=== PATIENT | male | born 1940 | race Caucasian/White ===

== ENCOUNTER 2021-01-29 13:44 | Emergency (ER) | payer MEDICARE ==
--- NOTE | 2021-01-29 14:19 | XR ---
EXAMINATION TYPE: XR KUB DATE OF EXAM: 01/29/2021 COMPARISON: NONE HISTORY: Constipation TECHNIQUE: One view abdominal series FINDINGS: The osseous structures are intact. The bowel gas pattern is nonspecific. Lung bases are clear. Hyper trophic and degenerative change spine. Arthropathy of the hips. Calcification right pelvis likely vas cular. IMPRESSION: 1. Nonspecific abdomen
[2021-01-29] MEDS ORDERED: HYDROmorphone 0.5 MG/0.5 ML SYRINGE IVP STA (16:05)
[2021-01-29] MEDS ORDERED: ONDANSETRON 4 MG/2 ML VIAL IVP STA (16:05)
[2021-01-29] MEDS ORDERED: SODIUM CHLORIDE 0.9% 500 ML 500 ML IV STA (16:05)
[2021-01-29] MEDS ORDERED: ACETAMINOPHEN TAB 500 MG TAB PO STA (16:09)
--- NOTE | 2021-01-29 16:10 | ED ---
General Adult HPI - General Chief complaint: Abdominal Pain Stated complaint: Constipation Time Seen by Provider: 01/29/21 15:43 Source: patient, RN notes reviewed Mode of arrival: ambulatory Limitations: no limitations - History of Present Illness Initial comments: 80-year-old male with a past medical history of remote cholecystectomy, appendectomy presents to the emergency room for chief complaint of abdominal pain. Patient states he has had mid abdominal pain for about 4 days now. States he has not had a full bowel movement in the past 4 days either. Patient reports that he believes he is constipated. Patient currently rating his pain at an 8 out of 10. Reports that he is very nauseous. Patient did get a pedraza virus immunization yesterday. He reports that he had a pedraza virus about 5 weeks ago.Patient has no other complaints at this time including shortness of breath, chest pain, headache, or visual changes. - Related Data Home Medications Medication Instructions Recorded Confirmed Aspirin EC [Ecotrin Low Dose] 81 mg PO DAILY 01/29/21 01/29/21 Calcium Carbonate [Calcium] 600 mg PO BID 01/29/21 01/29/21 Garlic 1 tab PO DAILY 01/29/21 01/29/21 Krill/Om-3/Dha/Epa/Phospho/Ast 1 cap PO DAILY 01/29/21 01/29/21 [[place]-3 Krill Oil 300 mg Sfgl] Pravastatin Sodium [Pravachol] 20 mg PO DAILY 01/29/21 01/29/21 Ubidecarenone [Co Q-10] 200 mg PO DAILY 01/29/21 01/29/21 amLODIPine [Norvasc] 10 mg PO DAILY 01/29/21 01/29/21 atenoloL [Tenormin] 50 mg PO BID 01/29/21 01/29/21 cloNIDine HCL [Catapres] 0.1 mg PO HS 01/29/21 01/29/21 lisinopriL [Zestril] 20 mg PO DAILY 01/29/21 01/29/21 metFORMIN HCL [Glucophage] 500 mg PO BID 01/29/21 01/29/21 Allergies Allergy/AdvReac Type Severity Reaction Status Date / Time No Known Allergies Allergy Verified 01/29/21 16:29 Review of Systems ROS Statement: Those systems with pertinent positive or pertinent negative responses have been documented in the HPI. ROS Other: All systems not noted in ROS Statement are negative. Past Medical History Past Medical History: No Reported History History of Any Multi-Drug Resistant Organisms: None Reported Past Surgical History: Appendectomy, Cholecystectomy Past Psychological History: No Psychological Hx Reported Smoking Status: Never smoker Past Alcohol Use History: None Reported Past Drug Use History: None Reported General Exam Limitations: no limitations General appearance: alert, in no apparent distress Head exam: Present: atraumatic, normocephalic, normal inspection Eye exam: Present: normal appearance, PERRL, EOMI. Absent: scleral icterus, conjunctival injection, periorbital swelling ENT exam: Present: normal exam, mucous membranes moist Neck exam: Present: normal inspection. Absent: tenderness, meningismus, lymp hadenopathy Respiratory exam: Present: normal lung sounds bilaterally. Absent: respiratory distress, wheezes, rales, rhonchi, stridor Cardiovascular Exam: Present: regular rate, normal rhythm, normal heart sounds. Absent: systolic murmur, diastolic murmur, rubs, gallop, clicks GI/Abdominal exam: Present: soft, tenderness (generalized abdominal tenderness), normal bowel sounds. Absent: distended, guarding, rebound, rigid Neurological exam: Present: alert Course Vital Signs 01/29/21 01/29/21 13:47 16:15 Temperature 99.8 F H 100.3 F H Pulse Rate 72 69 Respiratory 16 20 Rate Blood Pressure 168/83 141/73 O2 Sat by Pulse 97 96 Oximetry Medical Decision Making - Medical Decision Making Vitals are stable. Patient has minimal generalized abdominal tenderness. No guarding or rebound. CBC is unremarkable. CMP unremarkable. Amylase and lipase normal. Urinalysis negative for infection. Coronavirus was detected however patient has a +5 weeks ago. This could be residual positive. He does have a low-grade temperature of 100.3 however also had coving vaccine yesterday which could be related. He will need to monitor symptoms over the next few days. As far as his abdominal pain a CT was obtained which showed a nodular infiltrate in the right posterior lung base of densities measuring up to 1.7 cm. Follow-up recommended which I did discuss with patient. No acute abnormality otherwise. No obvious constipation. I did recommend MiraLAX as patient has not had a normal bowel movement in 4 days. Patient reevaluated and symptoms are much improved. States he "feels really good." Patient states he is hungry and wants to go eat food. At this time patient will be discharged home. He will return here if he has any worsening symptoms that were discussed with him. - Lab Data Result diagrams: 01/29/21 16:05 01/29/21 16:05 Lab Results 01/29/21 01/29/21 01/29/21 Range/Units 16:05 16:05 16:05 WBC 5.6 (3.8-10.6) k/uL RBC 4.53 (4.30-5.90) m/uL Hgb 13.8 (13.0-17.5) gm/dL Hct 39.9 (39.0-53.0) % MCV 88.1 (80.0-100.0) fL MCH 30.6 (25.0-35.0) pg MCHC 34.7 (31.0-37.0) g/dL RDW 14.5 (11.5-15.5) % Plt Count 148 L (150-450) k/uL MPV 7.3 Neutrophils % 78 % Lymphocytes % 11 % Monocytes % 7 % Eosinophils % 2 % Basophils % 1 % Neutrophils # 4.4 (1.3-7.7) k/uL Lymphocytes # 0.6 L (1.0-4.8) k/uL Monocytes # 0.4 (0-1.0) k/uL Eosinophils # 0.1 (0-0.7) k/uL Basophils # 0.0 (0-0.2) k/uL Sodium 134 L (137-145) mmol/L Potassium 4.5 (3.5-5.1) mmol/L Chloride 101 (98-107) mmol/L Carbon Dioxide 24 (22-30) mmol/L Anion Gap 9 mmol/L BUN 12 (9-20) mg/dL Creatinine 0.97 (0.66-1.25) mg/dL Est GFR (CKD-EPI)AfAm 85 (>60 ml/min/1.73 sqM) Est GFR (CKD-EPI)NonAf 74 (>60 ml/min/1.73 sqM) Glucose 121 H (74-99) mg/dL Plasma Lactic Acid [place] (0.7-2.0) mmol/L Calcium 9.0 (8.4-10.2) mg/dL Total Bilirubin 1.2 (0.2-1.3) mg/dL AST 41 (17-59) U/L ALT 47 (4-49) U/L Alkaline Phosphatase 83 (38-126) U/L Troponin I (0.000-0.034) ng/mL Total Protein 7.1 (6.3-8.2) g/dL Albumin 3.9 (3.5-5.0) g/dL Amylase 51 (30-110) U/L Lipase 43 (23-300) U/L Urine Color Yellow Urine Appearance Clear (Clear) Urine pH 5.5 (5.0-8.0) Ur Specific [place] 1.010 (1.001-1.035) Urine Protein Negative (Negative) Urine Glucose (UA) Negative (Negative) Urine Ketones Negative (Negative) Urine Blood Negative (Negative) Urine Nitrite Negative (Negative) Urine Bilirubin Negative (Negative) Urine Urobilinogen <2.0 (<2.0) mg/dL Ur Leukocyte Esterase Negative (Negative) Coronavirus (PCR) (Not Detectd) 01/29/21 01/29/21 01/29/21 Range/Units 16:05 16:05 16:05 WBC (3.8-10.6) k/uL RBC (4.30-5.90) m/uL Hgb (13.0-17.5) gm/dL Hct (39.0-53.0) % MCV (80.0-100.0) fL MCH (25.0-35.0) pg MCHC (31.0-37.0) g/dL RDW (11.5-15.5) % Plt Count (150-450) k/uL MPV Neutrophils % % Lymphocytes % % Monocytes % % Eosinophils % % Basophils % % Neutrophils # (1.3-7.7) k/uL Lymphocytes # (1.0-4.8) k/uL Monocytes # (0-1.0) k/uL Eosinophils # (0-0.7) k/uL Basophils # (0-0.2) k/uL Sodium (137-145) mmol/L Potassium (3.5-5.1) mmol/L Chloride (98-107) mmol/L Carbon Dioxide (22-30) mmol/L Anion Gap mmol/L BUN (9-20) mg/dL Creatinine (0.66-1.25) mg/dL Est GFR (CKD-EPI)AfAm (>60 ml/min/1.73 sqM) Est GFR (CKD-EPI)NonAf (>60 ml/min/1.73 sqM) Glucose (74-99) mg/dL Plasma Lactic Acid [place] 1.1 (0.7-2.0) mmol/L Calcium (8.4-10.2) mg/dL Total Bilirubin (0.2-1.3) mg/dL AST (17-59) U/L ALT (4-49) U/L Alkaline Phosphatase (38-126) U/L Troponin I <0.012 (0.000-0.034) ng/mL Total Protein (6.3-8.2) g/dL Albumin (3.5-5.0) g/dL Amylase (30-110) U/L Lipase (23-300) U/L Urine Color Urine Appearance (Clear) Urine pH (5.0-8.0) Ur Specific [place] (1.001-1.035) Urine Protein (Negative) Urine Glucose (UA) (Negative) Urine Ketones (Negative) Urine Blood (Negative) Urine Nitrite (Negative) Urine Bilirubin (Negative) Urine Urobilinogen (<2.0) mg/dL Ur Leukocyte Esterase (Negative) Coronavirus (PCR) Detected A (Not Detectd) Disposition Clinical Impression: Abdominal pain Disposition: HOME SELF-CARE Condition: Good Instructions (If sedation given, give patient instructions): Abdominal Pain (ED) Additional Instructions: Please follow up with primary care. If you have worsening symptoms return to the emergency room. Please quarantine for the next several days and monitor your symptoms and fevers. You did test positive for coronavirus. This could be a residual positive from 5 weeks ago however we cannot be sure at this time as you have a low grade fever. Follow up with primary care regarding this. Is patient prescribed a controlled substance at d/c from ED?: No Referrals: Karina Chapman MD [Primary Care Provider] - 1-2 days Time of Disposition: 18:36
[2021-01-29 16:17] VITALS: RESP 20
[2021-01-29 16:32] LABS: Albumin 3.9 g/dL (3.5-5.0); Potassium 4.5 mmol/L (3.5-5.1); Total Bilirubin 1.2 mg/dL (0.2-1.3); Total Protein 7.1 g/dL (6.3-8.2)
[2021-01-29 16:33] LABS: Basophils % (A) 1 %; Eosinophils # (A) 0.1 k/uL (0-0.7); Eosinophils % (A) 2 %; HCT 39.9 % (39.0-53.0); HGB 13.8 gm/dL (13.0-17.5); Lymphocytes # (A) 0.6 k/uL (1.0-4.8); Lymphocytes % (A) 11 %; MCH 30.6 pg (25.0-35.0); MCHC 34.7 g/dL (31.0-37.0); MCV 88.1 fL (80.0-100.0); Mean Platelet Volume 7.3; Monocytes # (A) 0.4 k/uL (0-1.0); Monocytes % (A) 7 %; Neutrophils # (A) 4.4 k/uL (1.3-7.7); Neutrophils % (A) 78 %; Platelet Count 148 k/uL (150-450); RBC 4.53 m/uL (4.30-5.90); RDW 14.5 % (11.5-15.5); WBC 5.6 k/uL (3.8-10.6)
[2021-01-29 16:34] LABS: Appearance,Urine Clear (Clear); Bilirubin,Urine Negative (Negative); Blood,Urine Negative (Negative); Color,Urine Yellow; Glucose,Urine (UA) Negative (Negative); Ketones,Urine Negative (Negative); Leukocyte Esterase,Urine Negative (Negative); Nitrite,Urine Negative (Negative); PH, Urine 5.5 (5.0-8.0); Protein,Urine Negative (Negative); Urobilinogen,Urine <2.0 mg/dL (<2.0)
--- NOTE | 2021-01-29 16:49 | XR ---
EXAMINATION TYPE: XR chest 1V portable DATE OF EXAM: 01/29/2021 COMPARISON: NONE HISTORY: Cough TECHNIQUE: Single view FINDINGS: There is no heart failure nor confluent pneumonic infiltrate. Costophrenic angles are clear . There are chest leads. Bony thorax is intact. Heart size is normal. IMPRESSION: Normal chest.
--- NOTE | 2021-01-29 17:25 | CT ---
EXAMINATION TYPE: CT abdomen pelvis w con DATE OF EXAM: 01/29/2021 COMPARISON: None HISTORY: Fever, abdominal pain and constipation. CT DLP: 1319.4 mGycm Automated exposure control for dose reduction was used. CONTRAST: Performed with IV Contrast, patient injected with 100 mL of Isovue 300. Images obtained from the diaphragm to the floor the pelvis with IV contrast. There is some mild nodular infiltrate at the right posterior lung base. There is no pleural effusion. There is no pericardial effusion. Heart size is normal. Gallbladder is absent. There is mild ectasia of the biliary tree. Common bile duct however is not dil ated. Common bile duct measures 9 mm. Spleen is intact. There is no pancreatic mass. Stomach is intac t. 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 There is no adrenal mass. Kidneys show satisfactory contrast opacification. There is no hydronephrosi s. Delayed images show normal renal excretion. There are numerous bilateral renal cortical cysts that measure up to 6 cm. There is no retroperitoneal adenopathy. Bladder distends smoothly. Prostate is e nlarged and measures 6 cm. There is no inguinal hernia. There is no free fluid in the pelvis. There i s small sigmoid diverticulum. There is no diverticulitis. There is no inguinal hernia. Appendix is not seen. There appears to be appendectomy. There is no mesenteric edema. There is no asc ites or free air. There is no bowel obstruction. There is no evidence of constipation. The lumbar vertebra have normal alignment. There is multilevel lumbar spondylotic changes. There is m oderately severe spinal stenosis at L4-5. There is less severe stenosis at L3-4. There is no compress ion fracture. The bony pelvis is intact. Hip joints are intact. IMPRESSION: Nodular infiltrate right posterior lung base with densities measure up to 1.7 cm. Follow-up is recomm ended to show clearing or long-term stability. No acute abnormality within the abdomen pelvis. Enlarged prostate. Lumbar spinal stenosis.
[2021-01-29] MEDS ORDERED: FAMOTIDINE 20 MG/2 ML VIAL IV STA (17:34)
[2021-01-29 18:53] VITALS: BP 102/54; PULSE 58; TEMP 99
== END 2021-01-29 18:59 | disposition home or self-care (01) ==
LOC: EC 13:44
DX: R10.84 Generalized abdominal pain (principal); Z90.49 Acquired absence of other specified parts of digestive tract
CPT/HCPCS: 36415; 80053; 82150; 83605; 83690; 84484; 85025; 81003; 87635; 71045; 74018; 74177; 99284; 96374; 96375 ×2; J2405; J1170; Q9967

== ENCOUNTER → 2022-10-04 | Outpatient (CLI) | payer MEDICARE ==
--- NOTE | 2022-10-04 17:20 | CT ---
EXAMINATION TYPE: CT chest w con DATE OF EXAM: 10/04/2022 COMPARISON: NONE HISTORY: Pulmonary Nodule CT DLP: 516.9 mGycm. Automated Exposure Control for Dose Reduction was Utilized. TECHNIQUE: CT scan of the thorax is performed following with IV Contrast, patient injected with 90cc mL of Isovue 370. FINDINGS: LUNGS: Low lung volumes and elevated left hemidiaphragm are present. There is left basilar compressiv e atelectasis. No suspicious greater than 5 mm pulmonary nodules are seen. Micronodule pleural left l ower lobe sagittal image 108 is noted. No suspicious focal consolidation. No pleural effusion or pneu mothorax seen. MEDIASTINUM: There are no greater than 1 cm hilar or mediastinal lymph nodes. No pericardial effusi on is seen. Heart size upper limits of normal. Coronary artery calcification is present which is not ed marked underlying coronary artery disease. Prominent pulmonary arteries raise concern for underlyi ng pulmonary artery hypertension. Thyroid gland is somewhat small in size. OTHER: A few simple-appearing thin-walled cysts scattered throughout the bilateral kidneys are partia lly imaged.. IMPRESSION: No significant greater than 5 mm pulmonary nodules.
== END | disposition home or self-care (01) ==
LOC: RADCTMAIN 15:19
PROVIDERS: ATTEND Family Medicine
DX: R91.1 Solitary pulmonary nodule (principal)
CPT/HCPCS: 82565; 84520; 71260; 36415; Q9967

== ENCOUNTER 2024-05-18 12:08 | Emergency (ER) | payer MEDICARE ==
[2024-05-18 12:11] VITALS: RESP 18
--- NOTE | 2024-05-18 12:37 | ED ---
Nausea/Vomiting/Diarrhea HPI - General Chief complaint: Nausea/Vomiting/Diarrhea Stated complaint: Vomiting Time Seen by Provider: 05/18/24 12:13 Source: patient, RN notes reviewed Mode of arrival: ambulatory Limitations: no limitations - History of Present Illness Initial comments: This is an 84-year-old male who presents to the emergency department for nausea and vomiting. States that last night he had pain in the epigastric region, and he then proceeded to vomit. After he threw up the pain resolved and has not returned. He does however continue to have persistent nausea and vomiting and has been unable to keep anything down. Denies any pain elsewhere in the abdomen, fevers, chills, diarrhea, or constipation. Also denies any sick contacts. MD complaint: nausea, vomiting - Related Data Home Medications Medication Instructions Recorded Confirmed Aspirin EC [Ecotrin Low Dose] 81 mg PO DAILY 01/29/21 01/29/21 Calcium Carbonate [Calcium] 600 mg PO BID 01/29/21 01/29/21 Garlic 1 tab PO DAILY 01/29/21 01/29/21 Krill/Om-3/Dha/Epa/Phospho/Ast 1 cap PO DAILY 01/29/21 01/29/21 [[place]-3 Krill Oil 300 mg Sfgl] Pravastatin Sodium [Pravachol] 20 mg PO DAILY 01/29/21 01/29/21 Ubidecarenone [Co Q-10] 200 mg PO DAILY 01/29/21 01/29/21 amLODIPine [Norvasc] 10 mg PO DAILY 01/29/21 01/29/21 atenoloL [Tenormin] 50 mg PO BID 01/29/21 01/29/21 cloNIDine HCL [Catapres] 0.1 mg PO HS 01/29/21 01/29/21 lisinopriL [Zestril] 20 mg PO DAILY 01/29/21 01/29/21 metFORMIN HCL [Glucophage] 500 mg PO BID 01/29/21 01/29/21 Previous Rx's Medication Instructions Recorded Ondansetron Odt [Zofran Odt] 4 mg PO Q8HR PRN #15 tab 05/18/24 Allergies Allergy/AdvReac Type Severity Reaction Status Date / Time No Known Allergies Allergy Verified 05/18/24 12:11 Review of Systems ROS Statement: Those systems with pertinent positive or pertinent negative responses have been documented in the HPI. ROS Other: All systems not noted in ROS Statement are negative. Past Medical History Past Medical History: No Reported History History of Any Multi-Drug Resistant Organisms: None Reported Past Surgical History: Appendectomy, Cholecystectomy Past Psychological History: No Psychological Hx Reported Smoking Status: Never smoker Past Alcohol Use History: None Reported Past Drug Use History: None Reported General Exam Limitations: no limitations General appearance: alert, in no apparent distress Head exam: Present: atraumatic, normocephalic, normal inspection Respiratory exam: Present: normal lung sounds bilaterally. Absent: respiratory distress, wheezes, rales, rhonchi, stridor Cardiovascular Exam: Present: regular rate, normal rhythm, normal heart sounds. Absent: systolic murmur, diastolic murmur, rubs, gallop, clicks GI/Abdominal exam: Present: soft, normal bowel sounds. Absent: distended, tenderness, guarding, rebound, rigid Neurological exam: Present: alert, oriented X3, CN II-XII intact Psychiatric exam: Present: normal affect, normal mood Skin exam: Present: warm, dry, intact, normal color. Absent: rash Course Vital Signs 05/18/24 05/18/24 05/18/24 12:09 12:18 13:49 Temperature 97.8 F Pulse Rate 62 59 L 62 Respiratory 18 Rate Blood Pressure 192/83 189/90 174/84 O2 Sat by Pulse 98 Oximetry 05/18/24 14:21 Temperature 98.1 F Pulse Rate 56 L Respiratory 18 Rate Blood Pressure 177/85 O2 Sat by Pulse 97 Oximetry Medical Decision Making - Medical Decision Making This is an 84 year old male who presents to the emergency department for nausea and vomiting. Was pt. sent in by a medical professional or institution? @ -No Did you speak to anyone other than the patient for history? @ -No Did you review nursing and triage notes? @ -Yes, and I agree, it is accurate with regards to the patient's symptoms. Were old charts reviewed? @ -No Differential Diagnosis? @ -Differential Nausea and Vomiting: Gastroenteritis, cholecystitis, appendicitis, pancreatitis, migraine, benign positional vertigo, food borne illness, pyelonephritis, irritable bowel syndrome, influenza, Covid, GERD, incarcerated hernia, intestinal obstruction, this is not meant to be an all-inclusive list. EKG interpreted by me (3pts min.)? @ -EKG interpreted by me demonstrating the following: Sinus bradycardia. Ventricular rate 59 bpm, MI interval 194 ms, QRS duration 91 ms, QTc 419 ms. X-rays interpreted by me (1pt min.)? @ -Not obtained CT interpreted by me (1pt min.)? @ -Not obtained U/S interpreted by me (1pt. min.)? @ -Not obtained What testing was considered but not performed? (CT, X-rays, U/S, labs)? Why? @ -None What meds were considered but not given? Why? @ -None Did you discuss the management of the patient with other professionals? @ -No Did you reconcile home meds? @ -No Was smoking cessation discussed for >3mins.? @ -No Was critical care preformed (if so, how long)? @ -No Were there social determinants of health that impacted care today? How? (Homelessness, low income, unemployed, alcoholism, drug addiction, transportation, low edu. Level, literacy, decrease access to med. care, fdc, rehab)? @ -No Was there de-escalation of care discussed even if they declined? (Discuss DNR or withdrawal of care, Hospice)? @ -No What co-morbidities impacted this encounter? (DM, HTN, Smoking, COPD, CAD, Cancer, CVA, Hep., AIDS, mental health diagnosis, sleep apnea, morbid obesity)? @ -None Was patient admitted / discharged? @ -Discharged. Lab work demonstrates mild leukocytosis with a white blood cell count of 11. Bilirubin also mildly elevated. COVID, influenza, and RSV testing negative. Urinalysis negative for signs of infection. Patient was not exhibiting any abdominal pain in conjunction with the nausea/vomiting and no imaging was obtained. He was treated with IV fluids, Zofran, and famotidine, with significant improvement in symptoms. He was tolerating oral intake afterwards and felt comfortable with discharge home. Prescription for Zofran provided. He is advised to slowly advance his diet as tolerated and remain well-hydrated. Case discussed with ED attending Dr. Chavez. Return precautions reviewed in depth, the patient is instructed to return to the emergency department with any new, worsening, or concerning symptoms. Patient verbalized understanding. Undiagnosed new problem with uncertain prognosis? @ -None Drug Therapy requiring intensive monitoring for toxicity (Heparin, Nitro, Insulin, Cardizem)? @ -None Were any procedures done? @ -None Diagnosis/symptom? @ -Nausea and vomiting Acute, or Chronic, or Acute on Chronic? @ -Acute Uncomplicated (without systemic symptoms) or Complicated (systemic symptoms)? @ -Uncomplicated Side effects of treatment? @ -None Exacerbation, Progression, or Severe Exacerbation] @ -Not applicable Poses a threat to life or bodily function? @ -No - Lab Data Result diagrams: 05/18/24 12:32 05/18/24 12:32 Lab Results 05/18/24 05/18/24 05/18/24 Range/Units 12:32 12:32 12:32 WBC 11.0 H (3.8-10.6) k/uL RBC 5.28 (4.30-5.90) m/uL Hgb 16.4 (13.0-17.5) gm/dL Hct 48.4 (39.0-53.0) % MCV 91.7 (80.0-100.0) fL MCH 31.1 (25.0-35.0) pg MCHC 33.9 (31.0-37.0) g/dL RDW 13.1 (11.5-15.5) % Plt Count 229 (150-450) k/uL MPV 7.6 Neutrophils % 84 % Lymphocytes % 9 % Monocytes % 5 % Eosinophils % 1 % Basophils % 0 % Neutrophils # 9.2 H (1.3-7.7) k/uL Lymphocytes # 1.0 (1.0-4.8) k/uL Monocytes # 0.6 (0-1.0) k/uL Eosinophils # 0.1 (0-0.7) k/uL Basophils # 0.0 (0-0.2) k/uL Sodium 138 (137-145) mmol/L Potassium 4.5 (3.5-5.1) mmol/L Chloride 104 (98-107) mmol/L Carbon Dioxide 26 (22-30) mmol/L Anion Gap 8 mmol/L BUN 14 (9-20) mg/dL Creatinine 0.88 (0.66-1.25) mg/dL Est GFR (CKD-EPI)AfAm >90 (>60 ml/min/1.73 sqM) Est GFR (CKD-EPI)NonAf 79 (>60 ml/min/1.73 sqM) Glucose 161 H (74-99) mg/dL Calcium 9.7 (8.4-10.2) mg/dL Total Bilirubin 2.9 H (0.2-1.3) mg/dL AST 27 (17-59) U/L ALT 21 (4-49) U/L Alkaline Phosphatase 71 (38-126) U/L Troponin I (0.000-0.034) ng/mL Total Protein 7.6 (6.3-8.2) g/dL Albumin 4.7 (3.5-5.0) g/dL Amylase 44 (30-110) U/L Lipase 34 (23-300) U/L Urine Color Light Yellow Urine Appearance Clear (Clear) Urine pH 6.5 (5.0-8.0) Ur Specific [place] 1.016 (1.001-1.035) Urine Protein Trace H (Negative) Urine Glucose (UA) Negative (Negative) Urine Ketones Trace H (Negative) Urine Blood Negative (Negative) Urine Nitrite Negative (Negative) Urine Bilirubin Negative (Negative) Urine Urobilinogen 2.0 (<2.0) mg/dL Ur Leukocyte Esterase Negative (Negative) Influenza Type A (PCR) (Not Detectd) Influenza Type B (PCR) (Not Detectd) RSV (PCR) (Not Detectd) SARS-CoV-2 (PCR) (Not Detectd) 05/18/24 05/18/24 Range/Units 12:32 12:32 WBC (3.8-10.6) k/uL RBC (4.30-5.90) m/uL Hgb (13.0-17.5) gm/dL Hct (39.0-53.0) % MCV (80.0-100.0) fL MCH (25.0-35.0) pg MCHC (31.0-37.0) g/dL RDW (11.5-15.5) % Plt Count (150-450) k/uL MPV Neutrophils % % Lymphocytes % % Monocytes % % Eosinophils % % Basophils % % Neutrophils # (1.3-7.7) k/uL Lymphocytes # (1.0-4.8) k/uL Monocytes # (0-1.0) k/uL Eosinophils # (0-0.7) k/uL Basophils # (0-0.2) k/uL Sodium (137-145) mmol/L Potassium (3.5-5.1) mmol/L Chloride (98-107) mmol/L Carbon Dioxide (22-30) mmol/L Anion Gap mmol/L BUN (9-20) mg/dL Creatinine (0.66-1.25) mg/dL Est GFR (CKD-EPI)AfAm (>60 ml/min/1.73 sqM) Est GFR (CKD-EPI)NonAf (>60 ml/min/1.73 sqM) Glucose (74-99) mg/dL Calcium (8.4-10.2) mg/dL Total Bilirubin (0.2-1.3) mg/dL AST (17-59) U/L ALT (4-49) U/L Alkaline Phosphatase (38-126) U/L Troponin I <0.012 (0.000-0.034) ng/mL Total Protein (6.3-8.2) g/dL Albumin (3.5-5.0) g/dL Amylase (30-110) U/L Lipase (23-300) U/L Urine Color Urine Appearance (Clear) Urine pH (5.0-8.0) Ur Specific [place] (1.001-1.035) Urine Protein (Negative) Urine Glucose (UA) (Negative) Urine Ketones (Negative) Urine Blood (Negative) Urine Nitrite (Negative) Urine Bilirubin (Negative) Urine Urobilinogen (<2.0) mg/dL Ur Leukocyte Esterase (Negative) Influenza Type A (PCR) Not Detected (Not Detectd) Influenza Type B (PCR) Not Detected (Not Detectd) RSV (PCR) Not Detected (Not Detectd) SARS-CoV-2 (PCR) Not Detected (Not Detectd) Disposition Clinical Impression: Nausea and vomiting Disposition: HOME SELF-CARE Instructions (If sedation given, give patient instructions): Acute Nausea and Vomiting (ED) Additional Instructions: Return to the emergency department with any new, worsening, or concerning symptoms. You can take the Zofran up to every 8 hours as needed for nausea and vomiting. Slowly advance your diet as tolerated and remain well-hydrated. Fo llow up with your primary care provider in 1-2 days. Prescriptions: Ondansetron Odt [Zofran Odt] 4 mg PO Q8HR PRN #15 tab PRN Reason: Nausea And Vomiting Is patient prescribed a controlled substance at d/c from ED?: No Referrals: Karina Chapman MD [Primary Care Provider] - 1-2 days Time of Disposition: 13:57
[2024-05-18] MEDS: SODIUM CHLORIDE 0.9% 1,000 ML IV STA (12:42)
[2024-05-18] MEDS: FAMOTIDINE 20 MG/2 ML VIAL IV STA (12:51)
[2024-05-18] MEDS: ONDANSETRON 4 MG/2 ML VIAL IVP STA (12:52)
[2024-05-18 12:58] LABS: Appearance,Urine Clear (Clear); Bilirubin,Urine Negative (Negative); Blood,Urine Negative (Negative); Color,Urine Light Yellow; Glucose,Urine (UA) Negative (Negative); Ketones,Urine Trace (Negative); Leukocyte Esterase,Urine Negative (Negative); Nitrite,Urine Negative (Negative); PH, Urine 6.5 (5.0-8.0); Protein,Urine Trace (Negative); Specific Gravity,Urine 1.016 (1.001-1.035)
[2024-05-18 13:09] LABS: ALT 21 U/L (4-49); AST 27 U/L (17-59); African American GFR (CKD) >90 (>60 ml/min/1.73 sqM); Albumin 4.7 g/dL (3.5-5.0); Alkaline Phosphatase 71 U/L (38-126); Amylase 44 U/L (30-110); Anion Gap 8 mmol/L; Blood Urea Nitrogen 14 mg/dL (9-20); Calcium 9.7 mg/dL (8.4-10.2); Carbon Dioxide 26 mmol/L (22-30); Chloride 104 mmol/L (98-107); Glucose 161 mg/dL (74-99); Lipase 34 U/L (23-300); Non-African American GFR(CKD) 79 (>60 ml/min/1.73 sqM); Potassium 4.5 mmol/L (3.5-5.1); Sodium 138 mmol/L (137-145); Total Bilirubin 2.9 mg/dL (0.2-1.3); Total Protein 7.6 g/dL (6.3-8.2)
[2024-05-18 13:12] LABS: Basophils % (A) 0 %; Eosinophils # (A) 0.1 k/uL (0-0.7); Eosinophils % (A) 1 %; HCT 48.4 % (39.0-53.0); HGB 16.4 gm/dL (13.0-17.5); Lymphocytes % (A) 9 %; MCH 31.1 pg (25.0-35.0); MCHC 33.9 g/dL (31.0-37.0); MCV 91.7 fL (80.0-100.0); Mean Platelet Volume 7.6; Monocytes # (A) 0.6 k/uL (0-1.0); Monocytes % (A) 5 %; Neutrophils # (A) 9.2 k/uL (1.3-7.7); Neutrophils % (A) 84 %; Platelet Count 229 k/uL (150-450); RBC 5.28 m/uL (4.30-5.90); RDW 13.1 % (11.5-15.5)
[2024-05-18] MEDS: ONDANSETRON 4 MG ODT STARTER PACK 2 TAB BTL PO STA (14:03)
[2024-05-18 14:22] VITALS: BP 177/85; PULSE 56; TEMP 98.1
== END 2024-05-18 14:21 | disposition home or self-care (01) ==
LOC: EC 12:08
DX: R11.2 Nausea with vomiting, unspecified (principal)
CPT/HCPCS: 36415; 93005; 80053; 82150; 83690; 84484; 85025; 81003; 87636; 99284; 96374; 96375; 96361 ×2; J2405; J3490; S0119

== ENCOUNTER 2025-04-07 08:31 | Day surgery (SDC) | payer MEDICARE ==
[2025-04-07] MEDS: SODIUM CHLORIDE 0.9% 500 ML 500 ML IV SCH (09:20)
[2025-04-07] MEDS: IV FLUID CONTINUATION 500 ML IV ONE (09:20)
[2025-04-07] MEDS: LIDOCAINE 1% (10MG/ML) FOR IV START INTRADERMA STA (09:20)
[2025-04-07 09:34] LABS: Glucose,Whole Blood 117 mg/dL (70-110)
[2025-04-07] MEDS ORDERED: PROPOFOL 10 MG/ML 20 ML VIAL IV ONE (10:00)
[2025-04-07 10:45] VITALS: TEMP 97.3
[2025-04-07 11:19] VITALS: RESP 18
[2025-04-07 11:35] VITALS: BP 140/80; PULSE 76
--- NOTE | 2025-04-07 15:00 | CE ---
CARDIAC ELECTROPHYSIOLOGY REPORT PROCEDURE: Electrical cardioversion. Date: 04/07/25 INDICATION: Persistent atrial fibrillation in spite of pharmacological efforts. CLINICAL INFORMATION: Mr. Jossue Zepeda is a gentleman with history of hypertension, hyperlipidemia, who has developed atrial fibrillation for the last 5 to 6 weeks, has been placed on amiodarone and rate control was achieved, but because of symptoms of shortness of breath and decreased exercise capacity, I advised electrical cardioversion after due anticoagulation with Eliquis 5 mg b.i.d. PROCEDURE NOTE: Under the influence of [id number] intravenous anesthetic agent with the attendance of anesthesiologist, a single shock was delivered with anterior and posterior patches. It was a 200 joule shock and the patient converted to sinus rhythm, remained hemodynamically stable and neurologically intact. This was a successful electrical cardioversion. REINIER / ELIZABETH: [id number] / MTDD
== END 2025-04-07 11:46 | disposition home or self-care (01) ==
LOC: OR 08:31
PROVIDERS: ATTEND Internal Medicine Interventional Cardiology
DX: I25.110 Atherosclerotic heart disease of native coronary artery with unstable angina pectoris (principal); I48.0 Paroxysmal atrial fibrillation; J45.909 Unspecified asthma, uncomplicated; E78.00 Pure hypercholesterolemia, unspecified; E11.9 Type 2 diabetes mellitus without complications; Z90.49 Acquired absence of other specified parts of digestive tract; Z79.84 Long term (current) use of oral hypoglycemic drugs; Z79.899 Other long term (current) drug therapy
CPT/HCPCS: 92960; J2704